=== PATIENT | male | born 1955 | race Caucasian/White ===

== ENCOUNTER → 2021-12-27 | Outpatient (CLI) | payer MEDICARE ==
[2021-12-27 10:56] LABS: BASO % 0.3 % (0.0-1.0); EOS # 0.1 10*3/uL (0.0-0.4); EOS % 0.5 % (1.0-4.0); HEMATOCRIT 50.7 % (42.0-52.0); LYMPH # 1.4 10*3/uL (1.3-4.4); LYMPH % 11.2 % (27.0-41.0); MEAN CELL VOLUME 94.4 fl (80.0-94.0); MEAN CORPUSCULAR HGB CONC 34.9 g/dl (33.0-37.0); MEAN PLATELET VOLUME 11.1 fl (9.6-12.3); MONO # 0.9 10*3/uL (0.1-1.0); MONO % 7.3 % (3.0-9.0); NEUT # 10.1 10*3/uL (2.3-7.9); NEUT % 78.7 % (47.0-73.0); PLATELET COUNT AUTOMATED 257 10*3/uL (130-400); RED BLOOD COUNT 5.37 10*6/uL (4.50-5.90); RETICULOCYTE % 1.57 % (0.50-2.50); WHITE BLOOD COUNT 12.8 10*3/uL (4.8-10.8)
[2021-12-27 11:04] LABS: BILIRUBIN 1+ (Negative); BLOOD Negative (Negative); CLARITY Clear (Clear); COLOR Dark Yellow (Yellow); GLUCOSE Negative (Negative); KETONE Trace (Negative); LEUKO ESTERASE Negative (Negative); NITRITE Negative (Negative); PH 6.5 (4.5-8.0); SPECIFIC GRAVITY 1.025 (1.001-1.030)
[2021-12-27 11:14] LABS: BUN 21 mg/dl (7-24); CHLORIDE 104 mmol/L (98-107); CHOLESTEROL 149 mg/dL (<200); GAMMA GLUTAMYL TRANSPEPTIDASE 120 U/L (15-85); POTASSIUM 3.7 mmol/L (3.5-5.1); SODIUM 139 mmol/L (136-145)
[2021-12-27 11:29] LABS: ALKALINE PHOSPHATASE 127 U/L (45-117); CREATININE 1.04 mg/dL (0.70-1.30); IRON 134 ug/dL (65-175); LDL CHOLESTEROL 56 mg/dL (9-159); SGOT/AST 118 IU/L (3-35); SGPT/ALT 149 U/L (12-78); THYROID STIM HORMONE (HS) 0.562 uIU/ml (0.358-4.75); TOTAL IRON BINDING CAPACITY 280 ug/dl (250-450); TRIGLYCERIDES 234 mg/dl (<150)
[2021-12-27 11:46] LABS: FERRITIN 692.8 ng/mL (22.0-322.0); VITAMIN D, 25-HYDROXY 42.7 ng/mL (30-100)
[2021-12-27 13:37] LABS: WBC 0-2 wbc/hpf (0-5)
== END | disposition home or self-care (01) ==
LOC: LAB 09:59
PROVIDERS: ATTEND Family Medicine
DX: E78.5 Hyperlipidemia, unspecified (principal); E55.9 Vitamin D deficiency, unspecified; Z12.5 Encounter for screening for malignant neoplasm of prostate; E11.9 Type 2 diabetes mellitus without complications; R79.89 Other specified abnormal findings of blood chemistry; R53.83 Other fatigue; R74.8 Abnormal levels of other serum enzymes